=== PATIENT | male | born 1980 | race Caucasian/White ===

== ENCOUNTER 2022-08-23 13:12 | Emergency (ER) | payer BC, OTHER ==
[2022-08-23] MEDS ORDERED: Lidocaine 2% 5 ML SDV INJECT ONE (13:18)
[2022-08-23] MEDS ORDERED: Diphtheria,Pertussis(Acell),Tetanus Vaccine 0.5 ML Syringe IM ONE (13:29)
[2022-08-23] MEDS ORDERED: Amoxicillin/Clavulanate K 875-125 MG Tab PO ONE (14:12)
== END 2022-08-23 14:25 | disposition home or self-care (01) ==
LOC: VM.ED 13:12
DX: S61.022A Laceration with foreign body of left thumb without damage to nail, initial encounter (principal); R03.0 Elevated blood-pressure reading, without diagnosis of hypertension; Z23 Encounter for immunization; W22.8XXA Striking against or struck by other objects, initial encounter
CPT/HCPCS: 12001; 90471; 90715; 99283-25; A9270-GY; J3490